=== PATIENT | female | born 2005 | race African-American/Black ===

== ENCOUNTER 2024-03-19 12:23 | Emergency (ER) | payer OTHER, SELFPAY ==
[2024-03-19 12:27] VITALS: BP 122/66; PULSE 64; RESP 18; TEMP 36.3; O2SAT 99; BMI 24.6
--- NOTE | 2024-03-19 12:52 | ED.EYEPROB ---
HPI - Eye Problem General Chief complaint: Eye Problems Stated complaint: Eye Complaints Time Seen by Provider: 03/19/24 12:25 History of Present Illness HPI Narrative: This 18-year-old female is a student and [employer] of the college is here and comes in reporting left eye symptoms for the past 3 days. She reports matting and discharge and has some mild swelling with some irritation of her eye. She does not report any other symptoms. She does not have any upper respiratory symptoms. Related Data Home Medications ?Medication ?Instructions ?Recorded ?Confirmed No Known Home Medications 03/19/24 03/19/24 Allergies Allergy/AdvReac Type Severity Reaction Status Date / Time No Known Drug Allergies Allergy Verified 03/19/24 12:31 Review of Systems Status of ROS: Reports: 10 or more systems reviewed and unremarkable except as noted in History and below Narrative: Constitutional: No fevers, no weight gain or loss. Eyes: Left eye irritation with matting and discharge. HENT: No congestion, no sore throat, no ear pain. Cardiovascular: No chest pain, no palpitations. Respiratory: No shortness of breath, no wheezes, no cough. Gastrointestinal: No abdominal pain, no vomiting, no diarrhea. Genitourinary: No dysuria, no hematuria. Musculoskeletal: Normal range of motion. Skin: No rashes, no pruritis. Neurological: No dizziness, weakness, sensory change, speech change. Endo/Heme/Allergies: No bruising or bleeding. No polydipsia. Pysch: no suicidality, no anxiety, no insomnia. All other systems reviewed and are negative. Exam Narrative: Exam Narrative: Constitutional: Well-developed, well-nourished, no acute distress. HEENT: Normocephalic, atraumatic. Left eyelid has very mild swelling. Currently no matting or discharge. Neck: Normal range of motion. Nontender. Supple. Heart: Regular. No murmurs. Normal rate. Intact distal pulses. Lungs: Clear to auscultation. No chest discomfort. No wheezes, rhonchi, or rales. Abdomen: Normal bowel sounds. Nontender. No rebound tenderness. Genitalia: Deferred. Back: No midline tenderness. Normal range of motion. Extremities: Normal range of motion. No injury. Skin: Intact. No rash. Warm. No erythema or pallor. Neurologic: No altered sensation. No weakness. Alert and oriented. Psychiatric: No suicidality. No anxiety or depression. No insomnia. Nursing notes and vitals signs are reviewed. Const: Vital Signs, click to edit/add: Vital Signs - 24 hr 03/19/24 12:27 Temperature 97.4 F L Pulse Rate [Right Pulse Oximeter] 64 Respiratory Rate 18 Blood Pressure [Me ght Upper Arm] 122/66 Pulse Oximetry 99 Oxygen Delivery Me thod Room Air Course Vital Signs Vital signs: Initial Vital Signs Temperature 97.4 F L 03/19/24 12:27 Temperature Source Temporal Artery Scan 03/19/24 12:27 Pulse Rate 64 03/19/24 12:27 Pulse Rhythm Regular 03/19/24 12:27 Respiratory Rate 18 03/19/24 12:27 Blood Pressure 122/66 03/19/24 12:27 Blood Pressure Mean 84 03/19/24 12:27 Blood Pressure Position Sitting 03/19/24 12:27 Pulse Oximetry 99 03/19/24 12:27 Oxygen Delivery Method Room Air 03/19/24 12:27 Vital Signs Temperature 97.4 F L 03/19/24 12:27 Pulse Rate 64 03/19/24 12:27 Respiratory Rate 18 03/19/24 12:27 Blood Pressure 122/66 03/19/24 12:27 Pulse Oximetry 99 03/19/24 12:27 Oxygen Delivery Method Room Air 03/19/24 12:27 Temperature 97.4 F L 03/19/24 12:27 Pulse Rate 64 03/19/24 12:27 Respiratory Rate 18 03/19/24 12:27 Blood Pressure 122/66 03/19/24 12:27 Pulse Oximetry 99 03/19/24 12:27 Oxygen Delivery Method Room Air 03/19/24 12:27 MDM - Eye Problem MDM Narrative Medical decision making narrative: This patient comes in with left eye symptoms suggestive of bacterial conjunctivitis. She does not have any other symptoms and vital signs are normal. She did receive a prescription for Polytrim ophthalmic ointment [facility]. Discharge Plan Discharge Clinical Impression: Conjunctivitis Patient Disposition: Home, Self-Care Condition: Stable Additional Instructions: Take medication as prescribed. Follow up with MD return if worsening. Prescriptions: No Action No Known Home Medications [facility]
== END 2024-03-19 13:31 | disposition home or self-care (01) ==
LOC: ED 13:18
PROVIDERS: Emergency Provider Emergency Medicine Emergency Medical Services
DX: H10.9 Unspecified conjunctivitis (principal)
CPT/HCPCS: 99282; 99283; 99284; A9270